=== PATIENT | male | born 2005 | race Caucasian/White ===

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

== ENCOUNTER 2025-08-11 17:36 | Emergency (ER) | payer SELFPAY ==
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
[2025-08-11] VITALS (9 sets, daily range): BP systolic 132–160; BP diastolic 77–132; PULSE 103–118; RESP 16–20; TEMP 36.4; O2SAT 93–97; BMI 36.6
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
--- OUTSIDE RECORDS SUMMARY | 2025-08-11 17:40 | XMS_ITS | Clinical Summary ---
Author Organization [facility] Address [address] [place] [address] Care Team Providers Care Bridge Expert Name Role Phone Unavailable Primary Care Provider Unavailabl e Social History Tobacco Use Types Packs/Day Years Used Date Smoking Tobacco: Never Assessed Sex and Gender Information Value Date Recorded Sex Assigned at Not on file Legal Sex Male 10:21 AM CDT Gender Identity Not on file Sexual Orientation Not on file Plan of Treatment Health Maintenance Due Date Last Done Comments CHLAMYDIA SCREENING (ANNUAL) 11-24 YEARS 2015 HPV VACCINES (1 - Male 3-dose series) 2019 DTAP/TDAP/TD VACCINES (1 - Tdap) 2023 HEPATITIS B VACCINES (1 of 3 - 19+ 3-dose series) 08/02 INFLUENZA VACCINE (#1) 2025
--- OUTSIDE RECORDS SUMMARY | 2025-08-11 17:40 | XMS_ITS | Clinical Summary ---
Author Organization [facility] Address [address] [place] [address] Care Team Providers Care Captain Room Service Name Role Phone Unavailable Primary Care Provider Unavailabl e Social History Tobacco Use Types Packs/Day Years Used Date Smoking Tobacco: Never Assessed Sex and Gender Information Value Date Recorded Sex Assigned at Not on file Legal Sex Male 8:05 AM CDT Gender Identity Not on file Sexual Orientation Not on file Plan of Treatment Health Maintenance Due Date Last Done Comments Hepatitis C Screening 2004 Anxiety Screening 2012 HIV Screening 2019 HPV Vaccines (1 - Male 3-dos e series) 2019 Meningococcal B Vaccine (1 o f 2 - Standard) 2020 Depression Screening 2022 Hepatitis B Vaccine (1 of 3 - 19+ 3-dose series) 2023 TDAP/DTaP/TD Vaccines (1 - Tdap) 2023 COVID-19 Vaccine (1 - 2023-2 5 season) 2025 Influenza Series (#1) 2025 Pneumococcal Vaccine 0-50 years Aged Out No longer eligible based on patient's age to complete this topic
--- OUTSIDE RECORDS SUMMARY | 2025-08-11 17:40 | XMS_ITS | Encounter Summary ---
Author Organization [facility] Address [address] [place] [address] Care Team Providers Care Manager Operations Research Name Role Phone Unavailable Primary Care Provider Unavailabl e Reason for Referral * EVAL & TREAT (Urgent) - Pending Review Specialty Diagnoses / Procedures Referred By Contac t Referred To Contact Neurology Diagnoses Neuropathy Myotonic disease or syndrome Ivania Smith, DO [address] [facility] [address] [place] [address] Phone: tel: fax: [facility] Clinic [address] [place] [address] [place] [address] Phone: tel: fax: Referral ID Status Reason Start Date Expiration Date Visits Requested Visits Authorized [id number] Pending Review Specialty Services Required 04/29/2025 05/01/2026 1 1 Question Answer Additional Detail Neuromuscular Encounter Details Date Type Department Care Team (Late st Contact Info) Description 05/01/2025 Order [place] [address] External Referring Provider, Not In System [address] [place] [address] Neuropathy (Primary Dx); Myotonic disease or syndrome Social History Tobacco Use Types Packs/Day Years Used Date Smoking Tobacco: Never Assessed Sex and Gender Information Value Date Recorded Sex Assigned at Not on file Legal Sex Male 8:05 AM CDT Gender Identity Not on file Sexual Orientation Not on file documented as of this encounter Plan of Treatment Scheduled Referrals Name Type Priority Associated Diagnoses Order Schedule Ambulatory Referral to Neurology Outpatient Referral Routine Neuropathy Myotonic disease or syndrome 1 Occurrences starting 05/01/2025 until 05/01/2026 documented as of this encounter Visit Diagnoses Diagnosis Neuropathy- Primary 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
--- OUTSIDE RECORDS SUMMARY | 2025-08-11 17:40 | XMS_ITS | Clinical Summary ---
Author Organization [facility] Address [address] [place] [address] Phone Care Team Providers Care Bioinformatics Engineer Name Role Phone Unavailable Primary Care Provider Unavailabl e Social History Tobacco Use Types Packs/Day Years Used Date Smoking Tobacco: Never Assessed Sex and Gender Information Value Date Recorded Sex Assigned at Not on file Legal Sex Male 1:44 PM CDT Gender Identity Not on file Sexual Orientation Not on file Plan of Treatment Health Maintenance Due Date Last Done Comments Wellness Child Visit 2 Years and Older 2006 Pediatric Lipid Screening 2013 Annual Depression Screening 2015 HPV Vaccines (1 - Male 3-dos e series) 2019 Meningococcal B Vaccine (1 o f 2 - Standard) 2020 Annual Physical 2022 Hepatitis C Antibody Screen 2022 DTap/Tdap/Td Vaccines (1 - Tdap) 2023 Flu Vaccine (#1) 06/01/2025 Influenza Vaccine 06/01/2025 Meningococcal ACWY Vaccine Aged Out N o longer eligible based on patient's age to complete this topic Insurance GENERIC COMMERCIAL
--- OUTSIDE RECORDS SUMMARY | 2025-08-11 17:40 | XMS_ITS | Patient Health Record ---
Author Organization [facility] Address [address] [place], [place] [address] [address] Support Name Relationship Address Phone Magdi Centeno Guarantor Unknown [phone] Reason For Referral No Information Social History Tobacco Use: Social History Observation Description Date Details (start date - stop date) Never Smoker NA - NA Smoking Question Answer Notes Smoking Status: nonsmoker vape Plan Of Treatment Pending Test Test Name Order Date Urinalysis, Routine 03/06/2024 Vision Screening 03/06/2024 Hearing Screening 03/06/2024 BTE 03/06/2024 Insurance Providers Payer Name Payer Address Payer Phone Subscriber Number Group Number Insured Name Patient Relationship to Insured Coverage Start Date Coverage End Date [employer] [email or web address] [place] [phone] Magdi Centeno Self - patient is the insured Medical (General) History Medical History History ICD Code L elbow fx as child rt wrist fx 2010
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
[2025-08-11] MEDS: morphine 4 mg/mL SDV 1 mL IVP (17:56)
[2025-08-11] MEDS: tetanus-dipt-pertussis 0.5 mL SDV IM (18:04)
[2025-08-11] MEDS: HYDROmorphone 0.5 MG/0.5 ML INJ 1 MG IVP ×2 (19:07→21:12)
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
[2025-08-11] MEDS: iohexol 350 mg/mL 500 mL Btl (per mL) IV (19:46)
[2025-08-11 20:49] LABS: Hematocrit 48.5 % (37-53); Hemoglobin 16.20 g/dL (13.2-15.6); Mean Corpuscular HGB Conc 33.4 g/dL (30-55); Mean Corpuscular Hemoglobin 27.3 pg (27-33); Mean Corpuscular Volume 81.8 fl (82-101); Nucleated Red Blood Cells % 0 %; Platelet Count 269 10^3/cmm (157-399); Red Blood Count 5.93 10^6/uL (3.85-5.65)
--- NOTE | 2025-08-11 20:49 | PC.NURSE ---
pt report called for [facility] ER to ER transfer to Nicole Alvarez RN. called at [phone].
[2025-08-11 21:05] LABS: Alanine Aminotransferase 76 U/L (0-41); Albumin Level 4.5 g/dL (3.5-5.2); Alkaline Phosphatase 60 U/L (40-130); Anion Gap 19.0 (5-19); Aspartate Amino Transferase 70 U/L (0-40); Blood Urea Nitrogen 13 mg/dL (6-20); Calcium 9.3 mg/dL (8.5-10.5); Carbon Dioxide 22 mmol/L (22-29); Chloride 99 mmol/L (98-107); Creatinine Clr Calc Pharmacy 140.3189; Globulin 3.2 g/dL (1.3-4.6); Glucose 147 mg/dL (65-115); Lactic Sepsis W/Reflex 3.3 mmol/L (0.5-2.2); Osmolality Calculated 285 mOsm/kg (285-295); Potassium 4.0 mmol/L (3.5-5.1); Sodium 136 mmol/L (136-145); Total Protein 7.7 g/dL (6.6-8.7); White Blood Count 30.82 10^3/uL (4.5-13.0)
[2025-08-11] MEDS: ondansetron 2 mg/ML SDV 2 mL 4 MG IVP (21:12)
[2025-08-11 23:11] LABS: Reflex Lactate Order REFLEX LACTIC ORDERD
== END 2025-08-11 21:26 | disposition short-term general hospital (02) ==
PROVIDERS: Emergency Provider Emergency Medicine
DX: S36.030A Superficial (capsular) laceration of spleen, initial encounter (principal); S22.39XA Fracture of one rib, unspecified side, initial encounter for closed fracture; S06.9X9A Unspecified intracranial injury with loss of consciousness of unspecified duration, initial encounter; S00.81XA Abrasion of other part of head, initial encounter; S20.419A Abrasion of unspecified back wall of thorax, initial encounter; S40.812A Abrasion of left upper arm, initial encounter; S40.811A Abrasion of right upper arm, initial encounter; V86.39XA Unspecified occupant of other special all-terrain or other off-road motor vehicle injured in traffic accident, initial encounter
CPT/HCPCS: 36415; 70450; 71250; 71260; 72125; 74176; 74177; 80053; 83605; 85025; 90471; 90715; 96374; 96375; 96376; 99285; J1171; J2270; J2405